=== PATIENT | male | born 1985 | race Two or more races ===

== ENCOUNTER 2020-12-06 16:32 | Emergency (ER) | payer OTHER ==
[~2020-12-06] VITALS: Ht 170.2 cm; Wt 90.0 kg
[2020-12-06 16:50] VITALS: BP 136/76
--- NOTE | 2020-12-06 17:14 | PHYS DOC ---
General Adult EDM: Chief Complaint: FINGER INJURY HPI: HPI: Patient is a 35 year old male who presents with was sharpening a knife and cut his left middle finger pad. Patient is due for a tetanus shot. Bleeding is controlled. Rates his pain a throbbing 4 out of 10. No past medical history. Review of Systems: Review of Systems: Constitutional: Denies fever or chills. [] Eyes: Denies change in visual acuity. [] HENT: Denies nasal congestion or sore throat. [] Respiratory: Denies cough or shortness of breath. [] Cardiovascular: Denies chest pain or edema. [] GI: Denies abdominal pain, nausea, vomiting, bloody stools or diarrhea. [] : Denies dysuria. [] Musculoskeletal: Denies back pain or joint pain. +Left middle finger pain[] Integument: Denies rash. +Laceration [] Neurologic: Denies headache, focal weakness or sensory changes. [] Endocrine: Denies polyuria or polydipsia. [] Lymphatic: Denies swollen glands. [] Psychiatric: Denies depression or anxiety. [] Heart Score: C/O Chest Pain: No Risk Factors: Risk Factors: DM, Current or recent (<one month) smoker, HTN, HLP, family history of CAD, obesity. Risk Scores: Score 0 - 3: 2.5% MACE over next 6 weeks - Discharge Home Score 4 - 6: 20.3% MACE over next 6 weeks - Admit for Clinical Observation Score 7 - 10: 72.7% MACE over next 6 weeks - Early Invasive Strategies Physical Exam: PE: Constitutional: Well developed, well nourished, no acute distress, non-toxic appearance. [] HENT: Normocephalic, atraumatic, bilateral external ears normal, oropharynx moist, no oral exudates, nose normal. [] Eyes: PERRLA, EOMI, conjunctiva normal, no discharge. [] Neck: Normal range of motion, no tenderness, supple, no stridor. [] Cardiovascular:Heart rate regular rhythm, no murmur [] Lungs & Thorax: Bilateral breath sounds clear to auscultation [] Abdomen: Bowel sounds normal, soft, no tenderness, no masses, no pulsatile masses. [] Skin: Warm, dry, no erythema, no rash. Left pad of middle finger laceration[] Back: No tenderness, no CVA tenderness. [] Extremities: No tenderness, no cyanosis, no clubbing, ROM intact, no edema. [] Neurologic: Alert and oriented X 3, normal motor function, normal sensory function, no focal deficits noted. [] Psychologic: Affect normal, judgement normal, mood normal. [] EKG: EKG: [] Radiology/Procedures: Radiology/Procedures: [] Impression: [facility] [address] [place] [address] IMAGING REPORT Signed PATIENT: CATHY FIGUEROAACCOUNT: [id number] : 1985 LOCATION: ER AGE: 35 SEX: M EXAM STATUS: REG ER ORD. PHYSICIAN: YOLA MCCRACKEN APRN REASON: laceration PROCEDURE: HAND LEFT 3V Site ID: [id number] EXAMINATION: XR HAND_LEFT 3 VIEWS. HISTORY: 35 years Male injury COMPARISON: None. FINDINGS: There is a deformity along the distal phalanx of the left the index finger with the cystic formation and the 3 mm corticated foreign body likely related to old injury sequela. There is also a bone cyst formed in the distal aspect of the distal phalanx. No definite acute fracture, dislocation or radiopaque foreign body. The joint spaces and articular surfaces appear unremarkable. There is a suggestion of the soft tissue laceration in the distal tip of the middle finger. IMPRESSION: Findings at the distal aspect of the distal phalanx of the left index finger are likely related to old injury. No definite acute fracture. Electronically signed by: Martha Montelongo MD (12/06/2020 5:33 PM) [id number] DICTATED and SIGNED BY: MARTHA MONTELONGO MD DATE: 12/06/20 [id number] Course & Med Decision Making: Course & Med Decision Making Pertinent Labs and Imaging studies reviewed. (See chart for details) See HPI. Alert and oriented x4. Ambulatory with a steady gait. Skin pink warm and dry. Radial pulse strong are present. Cap refill less than 2 seconds. Laceration repair Location: Left pad of middle finger. U-shaped. Local anesthesia: None Interrupted sutures/Internal sutures: Dermabond Nerve/ligament/muscle damage: None Cleaning and irrigation: Saline and chlorhexidine The appropriate timeout was taken. The area was prepped and draped in the usual sterile fashion. The wound was copiously irrigated with normal saline and chlorhexidine. Patient tolerated well without complication. Dressing was applied to the area follow-up education is given to observe for signs and sympto ms of infection, bleeding and to follow-up promptly if these occur. Patient can return in 48 hours for a wound recheck. Sutures to be removed in 7 to 10 days. [] Dragon Disclaimer: Dragon Disclaimer: This electronic medical record was generated, in whole or in part, using a voice recognition dictation system. Departure Departure Impression: Primary Impression: Laceration Disposition: 01 HOME / SELF CARE / HOMELESS Condition: STABLE Referrals: MARITZA OSMAN MD (PCP) Patient Instructions: Fingertip Laceration Additional Instructions: Follow-up with primary care provider. Do not use alcohol or lotions on the finger as this will breakdown the glue solution. Do not pick at the glue. Use soap and water. YOLA MCCRACKEN [employer] Dec 06, 2020 17:13
[2020-12-06] MEDS ORDERED: DIPH,PERTUSS(ACELL),TET VAC/PF 0.5 ML SYRINGE. VAX IM ONE (17:15)
--- NOTE | 2020-12-06 17:35 | RAD ---
Site ID: [id number] EXAMINATION: XR HAND_LEFT 3 VIEWS. HISTORY: 35 years Male injury COMPARISON: None. FINDINGS: There is a deformity along the distal phalanx of the left the index finger with the cystic formation and the 3 mm corticated foreign body likely related to old injury sequela. There is also a bone cyst formed in the distal aspect of the distal phalanx. No definite acute fracture, dislocation or radiopa que foreign body. The joint spaces and articular surfaces appear unremarkable. There is a suggestion of the soft tissue laceration in the distal tip of the middle finger. IMPRESSION: Findings at the distal aspect of the distal phalanx of the left index finger are likely related to ol d injury. No definite acute fracture. Electronically signed by: Mason Montelongo MD (12/06/2020 5:33 PM) [id number]
== END 2020-12-06 18:18 | disposition home or self-care (01) ==
LOC: ER 16:32
DX: S61.213A Laceration without foreign body of left middle finger without damage to nail, initial encounter (principal); W26.0XXA Contact with knife, initial encounter; Y93.89 Activity, other specified; Y92.89 Other specified places as the place of occurrence of the external cause; Y99.8 Other external cause status
CPT/HCPCS: 12001; 73130; 90471; 90715; 99283-25